=== PATIENT | female | born 2000 | race Caucasian/White ===

== ENCOUNTER 2024-09-06 01:07 | Emergency (ER) | payer OTHER, SELFPAY ==
[2024-09-06 01:16] VITALS: BP 120/38; PULSE 110; RESP 26; TEMP 36.6; O2SAT 100; BMI 21.9
[2024-09-06] MEDS: ONDANSETRON 2 MG/ML inj 4 MG IVP (01:30)
[2024-09-06] MEDS: 0.9 % SODIUM CHLORIDE 1000 ml 1,000 ML IV (01:31)
[2024-09-06 01:36] VITALS: O2SAT 98
[2024-09-06 01:37] LABS: Basophils Percent Auto 0.1 % (0.0-3.0); Eosinophils Percent Auto 0.4 % (0.0-7.0); Hematocrit 43.9 % (33.0-51.0); Hemoglobin* 14.8 gm/dL (12.0-16.0); Immature Granulocytes Pct Auto 0.2 %; Lymphocytes Percent Auto 4.9 % (20-44); Mean Corpuscular HGB Conc 34 gm/dL (32-36); Mean Corpuscular Hemoglobin 31 pg (26-34); Mean Corpuscular Volume 92 fL (80-100); Monocytes Percent Auto 6.9 % (0.0-11.0); Neutrophils Percent Auto 87.5 % (42.0-72.0); Platelet Count* 225 K/uL (140-440); RDW Coefficient of Variation % 11.6 % (11.5-15.5); Red Blood Count 4.75 m/uL (4.00-5.20); White Blood Count* 13.21 K/uL (4.50-11.00)
[2024-09-06 01:43] LABS: Slide Review Reflex No
--- NOTE | 2024-09-06 01:48 | ED.GENADULT ---
HPI - General Adult General Chief complaint: Nausea/Vomiting Stated complaint: vomiting Time Seen by Provider: 09/06/24 01:21 Source: patient Mode of arrival: ambulatory Limitations: no limitations History of Present Illness HPI narrative: 24-year-old female presents the emergency department with significant other. She reports vomiting that started about 2 hours prior to arrival, bilious. Diarrhea as well. No trauma or injury. Full mildly unwell a couple hours before bed but woke up with vomiting in the middle of the night. No trauma or injury. Some vague lower left abdominal pain, that started after the vomiting and diarrhea. Did not try taking any medication besides ibuprofen prior to coming to the ED. No prior history of GI surgeries, pelvic surgeries or bowel obstructions. No back pain, no bloody stools. No gynecological changes, denies chance of . Reports that she does not take any long-term medications. No allergies. Denies prior history of similar symptoms. No sick contacts. Past medical history benign, no major long-term health problems, medications, allergies or surgeries. ROS is notable for the GI symptoms as above only, otherwise denies times 12 systems. Related Data Home Medications ?Medication ?Instructions ?Recorded ?Confirmed No Known Home Medications 09/06/24 09/06/24 Allergies Allergy/AdvReac Type Severity Reaction Status Date / Time No Known Drug Allergies Allergy Verified 09/06/24 01:18 [facility] Social History Smoking Status: Never smoker How often do you have a drink containing alcohol: never AUDIT-C Alcohol total score: 0 Non-prescribed substance use: denies use Exam Const: Vital Signs, click to edit/add: Vital Signs - 24 hr 09/06/24 01:16 09/06/24 01:36 Temperature 97.9 F Pulse Rate [Pulse Oximeter] 110 H Respiratory Rate 26 H Blood Pressure [Ri ght Upper Arm] 120/38 L Pulse Oximetry 100 98 Oxygen Delivery Me thod Room Air Documenting provider has reviewed patient's vital signs: yes Common normals: alert Other: Fairly dramatic in presentation but answers questions appropriately. Cooperative. Appears well nourished and well hydrated, nontoxic. HENMT: Common normals: normocephalic, moist oral mucous membranes and oropharynx normal Head and scalp: normocephalic Face and sinus: normal facial exam Eye: Common normals: conjunctivae normal General eye: normal appearance of both eyes Conjunctiva: conjunctiva(e) normal Neck & C-Spine: Common normals: no lymphadenopathy General: normal visual inspection Resp: Common normals: normal respiratory effort, no use of accessory muscles and clear to auscultation bilaterally Effort & inspection: able to speak in complete sentences Auscultation: clear to auscultation bilaterally Cardio: Common normals: regular rate, regular rhythm, S1 normal heart sound, S2 normal heart sound and no murmurs Rate: regular rate Rhythm: regular rhythm Heart sounds: S1 normal and S2 normal GI: Other: Abdomen appears benign, soft to palpation. Mildly diffusely tender in the left lower quadrant area, certainly no rebound tenderness or guarding. No mass, no hepatosplenomegaly. Extremity: Common normals: normal capillary refill and no pedal edema Neuro: Sensorium/orientation: alert Speech: speech normal Motor exam: no movement abnormalities noted Psych: Appearance: grossly normal Insight: fair Judgement: fair Skin: Common normals: no rashes or lesions noted General skin exam: no rashes or lesions noted Course Course ED Course: 24-year-old female with symptoms most likely consistent with gastroenteritis. Initial exam is fairly reassuring. Differential diagnosis also includes bowel obstruction, pancreatitis, gastritis, colitis, influenza, , pelvic infection, amongst others She is fairly tachypneic and tachycardic on exam with initially borderline low blood pressures. Because of this, will give 1 L of normal saline, check basic labs, IV Zofran. Consider abdominal imaging if labs are markedly abnormal. Await findings. Reevaluation(s) Time of Reevaluation #1: 02:26 Reevaluation #1: Vomiting has resolved and patient has held down water here in the ED. She is still feeling lousy but her tachycardia and respiratory rate have improved. She was able to provide a urine sample. Counseled on lab findings which are very reassuring. Suspect gastroenteritis. Will give 4 mg of oral Imodium prior to departure. Prescription provided for ondansetron to take every 6 hours. Recommended that she set an alarm when she gets home an automatically take another dose at 7:30 a.m.. Push fluids. Alarm symptoms reviewed that would warrant ED presentation. She verbalizes understanding and agreement. Written instructions provided as well. Home from work today the may attempt tomorrow if symptoms improved sufficiently. Tylenol and ibuprofen are reasonable to take for mild discomfort, may also use additional [id number] Imodium if needed. Vital Signs Vital signs: Initial Vital Signs Temperature 97.9 F 09/06/24 01:16 Temperature Source Temporal Artery Scan 09/06/24 01:16 Pulse Rate 110 H 09/06/24 01:16 Respiratory Rate 26 H 09/06/24 01:16 Blood Pressure 120/38 L 09/06/24 01:16 Blood Pressure Mean 65 L 09/06/24 01:16 Blood Pressure Position Sitting 09/06/24 01:16 Pulse Oximetry 100 09/06/24 01:16 Oxygen Delivery Method Room Air 09/06/24 01:16 Vital Signs Temperature 97.9 F 09/06/24 01:16 Pulse Rate 110 H 09/06/24 01:16 Respiratory Rate 26 H 09/06/24 01:16 Blood Pressure 120/38 L 09/06/24 01:16 Pulse Oximetry 100 09/06/24 01:16 Oxygen Delivery Method Room Air 09/06/24 01:16 Temperature 97.9 F 09/06/24 01:16 Pulse Rate 110 H 09/06/24 01:16 Respiratory Rate 26 H 09/06/24 01:16 Blood Pressure 120/38 L 09/06/24 01:16 Pulse Oximetry 98 09/06/24 01:36 Oxygen Delivery Method Room Air 09/06/24 01:16 Medications Administered Medications: Discontinued Medications Generic Name Dose Route Start Last Admin Trade Name Freq PRN Reason Stop Dose Admin Sodium Chloride 1,000 mls @ 1,000 mls/hr 09/06/24 01:22 09/06/24 02:00 0.9 % Sodium Chloride 1000 Ml IV 09/06/24 02:21 Infused .Q1H MEAGAN Infusion Ondansetron HCl 4 mg 09/06/24 01:21 09/06/24 01:30 Ondansetron 2 Mg/Ml Inj IVP 09/06/24 01:22 4 mg ONCE ONE Administration Medical Decision Making Lab Data Lab results reviewed: Yes I reviewed the patient's lab results Lab results narrative: Labs fairly reassuring. Labs: Lab Results 09/06/24 09/06/24 09/06/24 Range/Units 01:18 01:21 01:34 WBC 13.21 H (4.50-11.00) K/uL RBC 4.75 (4.00-5.20) m/uL Hgb 14.8 (12.0-16.0) gm/dL Hct 43.9 (33.0-51.0) % MCV 92 (80-100) fL MCH 31 (26-34) pg MCHC 34 (32-36) gm/dL RDW Coeff of Nelda 11.6 (11.5-15.5) % Plt Count 225 (140-440) K/uL Neut % (Auto) 87.5 H (42.0-72.0) % Lymph % (Auto) 4.9 L (20-44) % Wilcox % (Auto) 6.9 (0.0-11.0) % Eos % (Auto) 0.4 (0.0-7.0) % Baso % (Auto) 0.1 (0.0-3.0) % Neut # (Auto) 11.60 H (1.7-7.0) K/uL Lymph # (Auto) 0.60 L (0.90-2.90) K/uL Wilcox # (Auto) 0.90 (0.00-0.90) K/UL Eos # (Auto) 0.10 (0.00-0.50) K/uL Baso # (Auto) 0.00 (0.00-0.30) K/uL Abs Immat Gran (auto) 0.00 (0.00-0.30) K/uL Imm/Tot Granulo (auto) 0.2 % Sodium 138 (135-149) mmol/L Potassium 4.0 (3.6-5.1) mmol/L Chloride 107 (96-114) mmol/L Carbon Dioxide 17 L (20-32) mmol/L Anion Gap 14 (7-15) mEq/L BUN 16 (5-24) mg/dL Creatinine 0.8 (0.5-1.5) mg/dL Estimated Creat Clear 85.02 Estimated GFR 105 ml/min Glucose 136 H (60-115) mg/dL Calcium 10.3 (8.4-10.6) mg/dL Total Bilirubin 1.2 (0.1-1.5) mg/dL AST 23 (12-35) U/L ALT 25 (4-35) U/L Alkaline Phosphatase 36 L (40-150) U/L C-Reactive Protein < 0.5 L (0.5-1.0) mg/dL Total Protein 8.2 (6.0-8.3) g/dL Albumin 5.0 (3.3-5.0) g/dL Lipase 104 (23-300) U/L Urine Color Yellow (Yellow) Urine Appearance Clear (Clear) Urine pH 6.0 (5.0-8.5) Ur Specific [place] 1.020 (1.000-1.030) Urine Protein 1+ A (Negative) Urine Glucose (UA) Negative (Negative) Urine Ketones 1+ A (Negative) Urine Blood Negative (Negative) Urine Nitrite Negative (Negative) Urine Bilirubin 1+ A (Negative) Urine Urobilinogen 0.2 (0.2-1.0) Ur Leukocyte Esterase Negative (Negative) Urine RBC 0-2 (0-2) Urine WBC 0-2 (0-5) Ur Squamous Epith Cells None (None-Few) Urine Bacteria None (None) Urine HCG, Qual Negative (Negative) SARS-CoV-2 (PCR) Negative SARS-CoV-2 (Negative) Influenza Type A (PCR) Negative PCR FLU A (Negative) Influenza Type B (PCR) Negative PCR FLU B (Negative) RSV (PCR) Negative PCR RSV (Negative) Discharge Plan Discharge Clinical Impression: Gastroenteritis Patient Disposition: Home w/ Parent or Adult Condition: Improved Instructions: Gastroenteritis (DC) Additional Instructions: As we discussed, your lab work looks great. There are no signs of any pancreatitis, severe infection, dehydration, electrolyte abnormality or other worrisome findings. I do suspect that your another victim of the strain of viral gastroenteritis, probably norovirus that we have going around. Unfortunately this could live of services for 24 hours so it is highly contagious. It is important that you continue pushing fluids. It is okay few do not hold down any solid food for a few days. Urinating at least 4 times a day is a sign that your pushing fluids enough. It is okay to use Tylenol 1000 mg every 6 hours and or ibuprofen 600 mg every 6 hours as needed for mild discomfort. I have provided your prescription for ondansetron, also known as Zofran which is a common anti nausea medication. This dissolves under the tongue. Please take another dose at 7:30 a.m. this morning and then again at 1:30 a.m. p.m.. After that, it is okay to try to change to as needed. Your given a dose of Imodium here in the emergency department, this is an enuj-der-bnhassh anti diarrhea medication. You may repeat this to mg up to every 2 hours if you continue to have additional bouts of diarrhea. You should return to the emergency department if the vomiting does not improve with medications after another 24-48 hours, you have persistent high fever, severe abdominal pain, significantly bloody stools or other signs of complication. Home from work today which is , May try to return Tuesday if feeling well enough to do so. Activity Level: Activity as Tolerated Discharge Diet: Regular Prescriptions: No Action No Known Home Medications Follow Up/Referrals: Tejal Garcia RN [Primary Care Provider] - Stand Alone Forms: [employer] Info Instructions
[2024-09-06 01:59] LABS: Chloride* 107 mmol/L (96-114); Sodium* 138 mmol/L (135-149)
[2024-09-06 02:00] LABS: PCR FLU A Negative PCR FLU A (Negative); PCR FLU B Negative PCR FLU B (Negative); PCR RSV Negative PCR RSV (Negative); SARS PCR* Negative SARS-CoV-2 (Negative)
[2024-09-06 02:02] LABS: Alkaline Phosphatase* 36 U/L (40-150); Anion Gap 14 mEq/L (7-15); Aspartate Amino Transferase* 23 U/L (12-35); Bilirubin Total* 1.2 mg/dL (0.1-1.5); Carbon Dioxide* 17 mmol/L (20-32); Creatinine* 0.8 mg/dL (0.5-1.5); Est. Creatinine Clearance* 85.02; Estimated Glomerular Filt Rate 105 ml/min; Lipase* 104 U/L (23-300); Total Protein* 8.2 g/dL (6.0-8.3)
[2024-09-06 02:03] LABS: Alanine Aminotransferase* 25 U/L (4-35); Blood Urea Nitrogen* 16 mg/dL (5-24); Calcium* 10.3 mg/dL (8.4-10.6); Glucose* 136 mg/dL (60-115)
[2024-09-06 02:07] LABS: C Reactive Protein* < 0.5 mg/dL (0.5-1.0)
--- OUTSIDE RECORDS SUMMARY | 2024-09-06 02:11 | XMS_ITS | Clinical Summary ---
Author Organization [facility] Address [place], [place] [address] Care Team Providers Care Ur Coordinator Name Role Phone Eliana Camacho DO Primary Care Provider [phone] Allergies No known active allergies Medications acetaminophen (TYLENOL) 325 mg tablet acetaminophen 325 mg oral tablet Start Date: 07/24/21 Status: Ordered 1 Active ibuprofen (ADVIL; MOTRIN) 800 mg tablet ibuprofen 800 mg oral tablet Start Date: 07/24/21 Status: Ordered 1 Active Active Problems Problem Noted Date Diagnosed Date Pap smear for cervical cancer screening 04/27/20 24 Overview (04/27/2024): 04/2024 NIL/HPV negative Plan: HPV based testing in 5 years Lack of concentration 03/20/2015 Panic attack 03/20/2015 Anxiety and depression 03/20/2015 PMDD (premenstrual dysphoric disorder) 5 Vitamin D deficiency 04/17/2014 Other specified viral warts 08/12/2010 Resolved Problems Problem Noted Date Diagnosed Date Resolved Date Acne 04/16/2014 04/16/2024 Immunizations Name Administration Dates Next Due Adenovirus Type 4 and 7 04/15/2017 Anthrax Vaccine 06/10/2021, 0,10/30/2018,05/04,03/10/2018 DTaP 03/16/2004, 9,1999,04/09 DTaP-HIB (TriHIBIT) 04/12/2000 HIB PRP-T (ActHIB,Hiberix) 1999,1999 ,1999 Hepatitis A (Peds) 01/19/2012,04/19/2011 Hepatitis B (Adult) 03/29/2001,08/15/2000,1998 Hepatitis B (Peds) 03/29/2001 Hepatitis B, Unspecified 08/15/2000,1999 Hib Conjugate, Unspecified 1999,1999 ,1999 Human Papilloma Virus Vaccine 01/19/2012, 012,04/19/2011 Inactivated Polio Vaccine 04/15/2017,04/2004,04/12/2000,06/02,1999 Influenza Virus, Unspecified 06/16/2020,07/05/20 17 Influenza, IIV3 (Age >=3 years) 06/15/2013,08/02 Influenza, Injectable, Mdck, Quadrivalent, W/preservative 06/16/2020,07/05/2017 Nepali Encephalitis 07/14/2021,06/10/2021 MENINGOCOCCAL VACCINE 2 VIAL [id number] (MENVEO) 03/19/2015,04/19/2011 MMR 03/16/2004,04/12/2000 Meningococcal Vaccine (Menactra) 04/15/2017 Tdap 04/12/2011 Typhoid (injectable) 02/28/2018 Varicella Vaccine 04/19/2011,04/12/2000 Yellow Fever 07/14/2021 Family History Medical History Relation Name Comments Hyperlipidemia Father Hypertension Father Crohn's disease Maternal Grandmother No Known Problems Mother Hypertension Paternal Aunt Cancer Paternal Grandfather gleobla stoma Hypertension Paternal Grandfather Cancer-pancreatic Paternal Grandmother Psychiatric illness Sister adhd- Relation Name Status Comments Father Alive Maternal Grandfather Alive Maternal Grandmother Mother Alive Paternal Aunt Paternal Grandfather Paternal Grandmother Sister Alive Social History Tobacco Use Types Packs/Day Years Used Date Smoking Tobacco: Former Cigarettes 0 04/13/2024 - 03/2016 Smokeless Tobacco: Never Tobacco Cessation:Counseling Given: Not Answered Alcohol Use Standard Drinks/Week Comments No 0 (1 standard drink = 0.6 oz pur e alcohol) Social Connections Answer Date Recorded Do you often feel lonely or isolated from those around you? 0 04/16/2024 Financial Resource Strain Answer Date R ecorded Difficulty of Paying Living Expenses 3 04/16/2024 Difficulty of Paying Living Expenses Not on file 04/16/2024 Food Insecurity Answer Date Recorded Do you worry your food will run out before you are able to buy more? 1 04/16/2024 Transportation Needs Answer Date Record ed Does lack of transportation keep you from medica l appointments? 1 04/16/2024 Does lack of transportation keep you from work, meetings or getting things that you need? 1 04/16/2024 Housing Stability Answer Date Recorded What is your housing situation today? 1 04/16/2024 Utilities Answer Date Recorded Do you have trouble paying f or utilities (for example, heat, electricity, water, phone)? 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, den papers Not on file Not on file Not on file Obstetrics History Last Filed Vital Signs Vital Sign Reading Time Taken Comments Blood Pressure 124/60 04/16/2024 2:50 PM CDT Pulse 70 04/16/2024 2:50 PM CDT Temperature 36.6 C (97.8 F) 03/15/2023 12:21 PM CDT Respiratory Rate 18 03/15/2023 12:2 1 PM CDT Oxygen Saturation 100% 03/15/2023 12: 21 PM CDT Inhaled Oxygen Concentration - - Weight 53.4 kg (117 lb 12.8 oz) 04/16/2024 2:50 PM CDT Height 159 cm (5' 2.6) 04/16/2024 2:50 PM CDT Body Mass Index 21.14 04/16/2024 2:50 PM CDT Plan of Treatment Health Maintenance Due Date Last Done Comments HIV for age 15-65 2014 Hepatitis C screening for age 18-79 2017 Depression screening for age 12+ 03/23/2018 03/23/2017 Tetanus booster 04/12/2021 04/12/2011 COVID-19 vaccine series (2023- season) 2024 08/15/2020, 07/24/2020 Influenza for age 9-49 04/08/2024 , 06/16/2020, 07/05/2017, Additional history exists BMI (ht and wt on same day) for age 18+ 04/16/2025 04/16/2024, 03/23/2017, 03/08/2017 Pap test for age 21-65 04/16/2029 04/16/2024, 2023 Tdap Completed 04/12/2011 HPV series for age 9-26 Completed 01/19/20 12, 08/17/2011, 04/19/2011 Pneumococcal series for age 6-49 Aged Out No longer eligible based on patient's age to complete this topic Procedures Procedure Name Priority Date/Time Associated Diagnosis Comments HPV HIGH RISK Routine 04/16/2024 2:45 PM CDT Cervical cancer screening from Last 3 Months or Most Recently Relevant to Health Maintenance Results * HPV HIGH RISK (04/16/2024 2:45 PM CDT) TYPE 16 Negative Negative 04/23/2024 2:17 PM CDT [facility] TYPE 18 Negative Negative 04/23/2024 2:17 PM CDT [facility] OTHER HIGH RISK TYPES Negative Negative 04/23/2024 2:17 PM CDT [facility] Other (Cervical) Non-Blood / Unknown 04/16/2024 2:45 PM CDT 04/17/2024 1:45 PM CDT Narrative [facility] - 04/23/2024 2:17 PM CDT HPV types 16, 18, 31, 33, 35, 39, 45, 51, 52, 56, 58, 59, 66 and 68 DNA were undetectable or below the pre-set threshold. Methodology: Justin Angelica 4800 HPV Test Nicky Polk DO MICROBIOLOGY Final Result [facility] [address] [place] [address], from Last 3 Months or Most Recently Relevant to Health Maintenance Insurance [facility] [employer] Care Teams Ur Coordinator Relationship Specialty [place] [id number] [place] [address] PCP - General Family Practice 04/04/15
[2024-09-06 02:16] LABS: Appearance Urine Clear (Clear); Bilirubin Urine 1+ (Negative); Blood Urine Negative (Negative); Color Urine Yellow (Yellow); Glucose Urine Negative (Negative); Ketones Urine 1+ (Negative); Leukocyte Esterase Urine Negative (Negative); Nitrite Urine Negative (Negative); Protein Urine 1+ (Negative); Urobilinogen Urine 0.2 (0.2-1.0)
[2024-09-06 02:17] LABS: RBC Urine 0-2 (0-2); Ur HCG Qualitative* Negative (Negative); WBC Urine 0-2 (0-5)
[2024-09-06] MEDS: LOPERAMIDE HCL 2 MG CAPSULE 4 MG PO (02:27)
[2024-09-06 02:33] VITALS: BP 126/74; PULSE 94; RESP 18; O2SAT 98
== END 2024-09-06 03:38 | disposition home or self-care (01) ==
PROVIDERS: Emergency Provider Family Medicine; PCP Nurse Practitioner Adult Health
DX: K52.9 Noninfective gastroenteritis and colitis, unspecified (principal)
CPT/HCPCS: 36415; 80053; 81001; 81003; 81025; 83690; 85025; 86140; 87631; 94761; 96374; 99283; 99284; A9270; J2405; J7030